=== PATIENT | male | born 1940 | race Caucasian/White ===

== ENCOUNTER 2017-02-21 12:33 | Emergency (ER) | payer OTHER ==
[~2017-02-21] VITALS: Ht 162.6 cm; Wt 69.8 kg
[2017-02-21 14:33] VITALS: BP 109/70
== END 2017-02-21 14:40 | disposition home or self-care (01) ==
LOC: EME 12:33
DX: S00.83XA Contusion of other part of head, initial encounter (principal); S40.812A Abrasion of left upper arm, initial encounter; W18.09XA Striking against other object with subsequent fall, initial encounter; Z87.891 Personal history of nicotine dependence
CPT/HCPCS: 70450; 70486; 99281; 99284

== ENCOUNTER → 2017-12-19 | Outpatient (CLI) | payer MEDICARE, OTHER ==
[~2017-12-19] MED LIST: ADVAIR 250/501 DISK IH; ASPIR 8181 M1 PO; COMBIVENT RESPIM4 GM IH; HYDROCHLOROTH12.5 M3 PO; LEVOXYL100 MCG PO; LOVASTATIN40 MG PO; NEXIUM20 MG PO; NITROGLYCERIN0.4 MG SL; NORVASC10 MG PO; OMEPRAZOLE20 MG PO; PLAQUENIL200 MG PO; POTASSIUM CHLO10 ME3 PO; PREDNISONE10 MG PO
== END | disposition home or self-care (01) ==
LOC: CDC 08:25
DX: Z01.810 Encounter for preprocedural cardiovascular examination (principal); R91.1 Solitary pulmonary nodule; I49.1 Atrial premature depolarization
CPT/HCPCS: 93000

== ENCOUNTER 2017-12-22 08:24 | Inpatient (IN) | payer OTHER ==
[~2017-12-22] VITALS: Ht 162.6 cm; Wt 70.4 kg
[~2017-12-22 08:24] MED LIST changes: -OMEPRAZOLE20 MG PO; -PLAQUENIL200 MG PO
[2017-12-22] MEDS ORDERED: OMEPRAZOLE20 MG PO (09:03)
[2017-12-22] MEDS ORDERED: PLAQUENIL200 MG PO (09:04)
[2017-12-22 09:07] LABS: HEMATOCRIT 39.3 % (38.0-50.0); MCH 28.3 PG (29.0-34.0); MCHC 33.1 G/DL (30.0-36.0); MCV 85.6 FL (86-99); PLATELET COUNT 313 K/uL (156-360); RBC DIS.WIDTH-CV 14.6 % (11.8-14.6); RBC DIS.WIDTH-SD 45.1 % (39-53); RED BLOOD COUNT 4.59 M/uL (4.00-5.50); WHITE BLOOD COUNT 9.8 K/uL (4.1-10.2)
[2017-12-22 09:36] LABS: INTER. NORMALIZED RATIO 0.9
[2017-12-22 09:39] LABS: PTT 25.6 SEC (25-37)
[2017-12-22 17:30] VITALS: BP 127/77
[2017-12-22 18:58] LABS: TROP-I INTERPRETATION NEGATIVE; TROPONIN-I 0.01 ng/mL (0.0-0.30)
[2017-12-22 20:08] VITALS: BP 127/77
[2017-12-22 22:36] VITALS: BP 139/67
[2017-12-23 03:36] VITALS: BP 114/53
[2017-12-23 06:39] LABS: TROP-I INTERPRETATION NEGATIVE; TROPONIN-I 0.01 ng/mL (0.0-0.30)
[2017-12-23 07:54] VITALS: BP 132/64
[2017-12-23 10:37] VITALS: BP 151/87
[2017-12-23 15:11] VITALS: BP 151/85
[2017-12-23 19:47] VITALS: BP 140/89
[2017-12-24 00:18] VITALS: BP 131/72
[2017-12-24 05:12] VITALS: BP 122/75
[2017-12-24 08:12] VITALS: BP 141/78
== END 2017-12-24 18:03 | disposition left against medical advice (07) | DRG 309 ==
LOC: OPR 08:24 → EDSTATUS 09:00 → OPR 09:00 → 2SOUTH 15:48 → ENRESERV 15:56 → 2SOUTH 18:26 → 4EAST 18:26 → 2SOUTH 18:26 → ENRESERV 18:26 → 4EAST 19:27
PROVIDERS: Internal Medicine Cardiovascular Disease; Thoracic Surgery (Cardiothoracic Vascular Surgery)
DX: I49.5 Sick sinus syndrome (principal); D47.2 Monoclonal gammopathy; M06.9 Rheumatoid arthritis, unspecified; I10 Essential (primary) hypertension; J93.9 Pneumothorax, unspecified; I25.10 Atherosclerotic heart disease of native coronary artery without angina pectoris; Z87.891 Personal history of nicotine dependence; J43.9 Emphysema, unspecified; Z86.718 Personal history of other venous thrombosis and embolism; E78.5 Hyperlipidemia, unspecified; Z82.49 Family history of ischemic heart disease and other diseases of the circulatory system
CPT/HCPCS: 32560; 36415; 71045; 77012; 80053; 84484; 85025; 85027; 85610; 85610 GA; 85730; 85730 GA; 88305; 88341 TC; 88342 TC; 93000; 93005; 93306; 94640; 94640 76; 94799; 99202; C1729; C1769; J3010; J7512

== ENCOUNTER → 2018-01-02 | Outpatient (CLI) | payer OTHER ==
[~2018-01-02] MED LIST changes: +OMEPRAZOLE20 MG PO; +PLAQUENIL200 MG PO
[2018-01-02 11:05] LABS: FI02 21 %; PCO2 37 mm Hg (35-45); PO2 82 mm Hg (80-100); SITE LR; pH 7.47 (7.35-7.45)
[2018-01-02 11:06] LABS: BASE EXCESS 3.2 mEq/L (-3 to +3); BICARBONATE 26.9 mEq/L (22-26); CARBOXY HGB 1.6 % (0-5); METHEMOGLOBIN 1.1 % (0-1.5)
== END | disposition home or self-care (01) ==
LOC: RES 10:32
PROVIDERS: Thoracic Surgery (Cardiothoracic Vascular Surgery)
DX: R91.1 Solitary pulmonary nodule (principal); C34.90 Malignant neoplasm of unspecified part of unspecified bronchus or lung
CPT/HCPCS: 36600; 82803; 94010